=== PATIENT | female | born 1990 | race Caucasian/White ===

== ENCOUNTER → 2022-01-15 | Outpatient (CLI) | payer OTHER ==
[~2022-01-15] MED LIST: ACID REDUCER200 MG PO; BIRTH CONTROL; CRUTCHES MC; DESYREL 50MG50 MG PO; LAMICTAL200 MG PO; NAPROSYN500 MG PO; NEXPLANON68 MG ID; NORCO 325 MG-51 TAB PO; VYVANSE30 MG PO
== END ==
LOC: COL.RAD 11:21
DX: Z30.431 Encounter for routine checking of intrauterine contraceptive device (principal); T83.32XA Displacement of intrauterine contraceptive device, initial encounter